=== PATIENT | female | born 1955 | race African-American/Black ===

== ENCOUNTER 2017-06-22 12:36 | Outpatient (CLI) | payer OTHER ==
[~2017-06-22 12:36] MED LIST: AMBIEN; CHLORTHALIDONE; FLONASE16 GM NS; NAPROXEN; NORVASC10 MG; SEROQUEL; ZANTAC300 MG PO; [UNRECOGNIZED DRUG - OTHER]
== END 2017-06-22 13:00 | disposition home or self-care (01) ==
LOC: NUCLEAR 12:36
DX: M81.0 Age-related osteoporosis without current pathological fracture (principal)

== ENCOUNTER → 2017-07-13 | Outpatient (CLI) | payer OTHER | END | disposition home or self-care (01) | LOC: PPH VACUNA 11:39 | DX: Z23 Encounter for immunization (principal) ==

== ENCOUNTER 2018-01-24 09:10 | Outpatient (CLI) | payer OTHER | END 2018-01-24 17:00 | disposition home or self-care (01) | LOC: MAMO-SONO 09:10 → EDBD 09:10 → MAMO-SONO 09:15 | DX: Z12.31 Encounter for screening mammogram for malignant neoplasm of breast (principal); Z87.898 Personal history of other specified conditions ==

== ENCOUNTER 2018-08-11 07:31 | Outpatient (CLI) | payer OTHER | END 2018-08-11 07:38 | disposition home or self-care (01) | LOC: RAD 07:31 | DX: M51.9 Unspecified thoracic, thoracolumbar and lumbosacral intervertebral disc disorder (principal) ==

== ENCOUNTER 2019-06-10 10:43 | Emergency (ER) | payer OTHER ==
[~2019-06-10] VITALS: Ht 160 cm; Wt 113.4 kg
[2019-06-10] MEDS ORDERED: NEURONTIN300 MG (11:04)
[2019-06-10] MEDS ORDERED: ULTRAM50 MG (11:04)
[2019-06-10] MEDS ORDERED: TOPROL XL25 M1 (11:05)
[2019-06-10] MEDS ORDERED: LASIX40 MG (11:05)
== END 2019-06-10 21:26 | disposition home or self-care (01) ==
LOC: ER 10:43 → CPU-OBS 12:12 → ER 12:12
DX: G57.02 Lesion of sciatic nerve, left lower limb (principal); R07.89 Other chest pain; G57.82 Other specified mononeuropathies of left lower limb; M25.552 Pain in left hip; M54.5 Low back pain

== ENCOUNTER → 2019-10-02 | Emergency (ER) | payer OTHER ==
[~2019-10-02] VITALS: Ht 160 cm; Wt 113.4 kg
[~2019-10-02] MED LIST changes: +LASIX40 MG; +NEURONTIN300 MG; +TOPROL XL25 M1; +ULTRAM50 MG
== END | disposition home or self-care (01) ==
LOC: ER 06:50
DX: R06.02 Shortness of breath (principal); R05 Cough; R50.9 Fever, unspecified; B96.0 Mycoplasma pneumoniae [M. pneumoniae] as the cause of diseases classified elsewhere

== ENCOUNTER 2020-02-21 12:57 | Emergency (ER) | payer OTHER ==
[~2020-02-21] VITALS: Ht 160 cm; Wt 117.9 kg
[2020-02-21] MEDS ORDERED: KETO10TA2 PO (16:58)
[2020-02-21] MEDS ORDERED: ZITHROMAX500 MG PO (16:58)
[2020-02-21] MEDS ORDERED: NORFLEX100MG PO (16:58)
[2020-02-21] MEDS ORDERED: ANTI-ITCH28 G1 TOP (16:58)
== END 2020-02-21 17:40 | disposition home or self-care (01) ==
LOC: ER 12:57
DX: B34.9 Viral infection, unspecified (principal); Z20.828 Contact with and (suspected) exposure to other viral communicable diseases

== ENCOUNTER 2020-05-07 13:28 | Outpatient (CLI) | payer OTHER ==
[~2020-05-07 13:28] MED LIST changes: +ANTI-ITCH28 G1 TOP; +KETO10TA2 PO; +NORFLEX100MG PO; +ZITHROMAX500 MG PO
== END 2020-05-07 13:45 | disposition home or self-care (01) ==
LOC: NUCLEAR 13:28
DX: M81.0 Age-related osteoporosis without current pathological fracture (principal)